=== PATIENT | male | born 1935 ===

== ENCOUNTER → 2017-03-14 | Outpatient (CLI) | payer MEDICARE, BC ==
[~2017-03-14] MED LIST: ASPIRIN EC81 MG PO; COLACE100 MG PO; COZAAR50 MG PO; FINASTERIDE5 MG PO; FLOMAX0.4 MG PO; MIRALAX17 GM PO; OCUVITE SOFTGE1 EACH PO; ROXICODONE 5MG (5 MG PO; TYLENOL EXTRA500 MG PO; XARELTO10 MG PO; ZOCOR40 MG PO
--- NOTE | ~2017-03-14 | PUL ---
PATIENT'S NAME: TONE BONILLA [facility] AGE: 81 Y [address] ROOM: [place] [id number] LOCATION: [facility] ADMIT DATE: 03/14/2017 Pulmonary DISCHARGE DATE: FAMILY PHYSICIAN: Juan Antonio Leroy MD ATTENDING PHYSICIAN: Juan Antonio Leroy NAME OF PROCEDURE: Sleep study PROCEDURE DATE: 03/14/17 TECH: LEONCIO Mcmahon TEST #: [facility] [place]# [id number] TECHNICAL PARAMETERS: The patient was studied using International 10/20 measuring system. While the patient was studied, there was continuous monitoring of EEG (8 leads), EOG (2 leads), EKG (3 leads), submental EMG (3 leads), tibial (4 leads), respiratory inductive plethysmography (RIP) for thoracic and abdominal effort, oral and nasal airflow with a thermocouple and pressure transducer, and oximetry. The aircraft maintenance technician also performed visual and auditory observations noting things like body position, patient's status, breath sounds, artifact, snoring level and patient comments. Continuous sound was monitored using a 2-way speaker system and video monitoring was performed using an infrared camera. Review of the entire study was performed epoch by epoch utilizing a single epoch and multiple epoch capability sleep system. MEDICAL HISTORY: Patient is a 81-year-old overweight man with daytime sleepiness and snoring. SLEEP STAGE SUMMARY: The patient was studied for a total of 436 minutes of which he slept 380 minutes. He fell asleep in 7 minutes and slept for 87% of the night. Sleep architecture revealed a decline in slow wave sleep. RESPIRATORY SUMMARY: Oxygen saturations ranged from 78%-94% and were below 88% for 52 minutes. Patient slept in a recliner during this study. There were 2 apneas and 86 hypopneas for an apnea/hypopnea index mildly elevated at 14 events per hour. The majority of the events occurred too late in the study to allow for initiation of CPAP. EKG SUMMARY: Occasional bursts of tachycardia were noted. Exact rhythm is difficult to define. It appears the patient may have a pacemaker. LIMB MOVEMENT SUMMARY: No clinically relevant periodic limb movements were noted. PATIENT'S NAME: TONE BOINLLA [facility] AGE: 81 Y [address] ROOM: [place] [id number] LOCATION: [facility] ADMIT DATE: 03/14/2017 Pulmonary DISCHARGE DATE: FAMILY PHYSICIAN: Juan Antonio Leroy MD ATTENDING PHYSICIAN: Juan Antonio Leroy SUMMARY: At least mild possibly moderate obstructive sleep apnea. PLAN: Would consider a repeat study for initiation and titration of CPAP. SHAMIR BHAKTA MD [facility]/ /[id number] dtt: 03/19/17 1303 , Shamir Bhakta. dtd: 03/19/17 1126
== END | disposition disaster alternative care site (69) ==
LOC: GSLP 20:26
DX: G47.10 Hypersomnia, unspecified (principal)